=== PATIENT | female | born 1935 | race Caucasian/White ===

== ENCOUNTER 2024-02-21 08:48 | Day surgery (SDC) | payer OTHER, BC ==
[2024-02-19 16:33] VITALS: BMI 24.4
[2024-02-21] MEDS ORDERED: CIPROFLOXACIN 0.3% EYE DROPS 5 ML BOTTLE ONE (08:57)
[2024-02-21] MEDS: PHENYLEPHRINE 2.5% OPTHALMIC DROP 2ML BOTTLE ONE (09:25)
[2024-02-21] MEDS: CYCLOPENTOLATE 2% OPHTH SOLN 2 ML BOTTLE ONE (09:25)
[2024-02-21] MEDS: TOBRAMYCIN 0.3% OPHTH SOLN 5 ML BOTTLE ONE (09:25)
[2024-02-21] MEDS: TROPICAMIDE 1% OPHTH SOLN 15 ML BOTTLE ONE (09:25)
[2024-02-21] MEDS ORDERED: LIDOCAINE 1% P/F 10 MG/ML VIAL ONE (09:31)
[2024-02-21] MEDS ORDERED: NEO/POLYMYX B SULF/DEXAMETH OPHTHALMIC 5ML BOTTLE ONE (09:32)
[2024-02-21] MEDS ORDERED: BSS (NA/CA/MG/K) BALANCED SALT SOLUTION OPHTH SOLN 15 ML BOTTLE ONE (09:32)
[2024-02-21] MEDS ORDERED: TETRACAINE 0.5% OPHTH SOLN 2 ML BOTTLE ONE (09:32)
[2024-02-21] MEDS ORDERED: CARBACHOL 0.01% INTRA-OCULAR 1.5 ML VIAL ONE (09:32)
[2024-02-21 09:37] VITALS: RESP 16
[2024-02-21] MEDS ORDERED: MIDAZOLAM HCL 2 MG/2 ML SINGLE DOSE VIAL ONE (09:54)
[2024-02-21 11:17] VITALS: PULSE 74; TEMP 97.4
[2024-02-21 11:46] VITALS: BP 134/67
== END 2024-02-21 11:46 | disposition home or self-care (01) ==
LOC: FASU 08:48
PROVIDERS: ATTEND Ophthalmology
PROC: 08RK3JZ Replacement of Left Lens with Synthetic Substitute, Percutaneous Approach (ICD-10-PCS; principal; 2024-02-21 10:22)
DX: H26.8 Other specified cataract (principal)
CPT/HCPCS: 66984; V2632